=== PATIENT | female | born 1985 | race Caucasian/White ===

== ENCOUNTER 2019-07-19 08:56 | Inpatient (IN) | payer BC ==
[2019-07-19] MEDS ORDERED: TERBUTALINE 1 MG/ML VIAL SQ PRN (10:54)
[2019-07-19] MEDS ORDERED: CITRIC ACID-SODIUM CITRATE 15 ML CUP PO ONE (10:59)
[2019-07-19 11:01] LABS: Appearance,Urine Turbid (Clear); Bacteria,Urine Many /hpf; Bilirubin,Urine Negative (Negative); Blood,Urine Large (Negative); Color,Urine Light Red; Glucose,Urine (UA) Negative (Negative); Ketones,Urine Negative (Negative); Leukocyte Esterase,Urine Large (Negative); Mucus,Urine Few /hpf; Nitrite,Urine Negative (Negative); PH, Urine 6.5 (5.0-8.0); Protein,Urine 2+ (Negative); RBC,Urine >182 /hpf (0-5); Specific Gravity,Urine 1.019 (1.001-1.035); Squamous Epithelial Cell,Urine 27 /hpf (0-4); Urobilinogen,Urine <2.0 mg/dL (<2.0); WBC,Urine >182 /hpf (0-5)
[2019-07-19] MEDS ORDERED: MORPHINE SULFATE (PF) 0.3 MG/0.3 ML SYR ONE (12:00)
[2019-07-19] MEDS ORDERED: NALBUPHINE 10 MG/ML (1 ML AMP) ONE (12:00)
[2019-07-19] MEDS ORDERED: ONDANSETRON 4 MG/2 ML VIAL ONE (12:00)
[2019-07-19] MEDS ORDERED: OXYTOCIN 10 UNIT/ML 1 ML VIAL ONE (12:00)
[2019-07-19] MEDS ORDERED: KETOROLAC 30 MG/ML 1 ML VIAL ONE (12:00)
[2019-07-19 12:14] LABS: Basophils # (A) 0.2 k/uL (0-0.2); Basophils % (A) 1 %; Eosinophils # (A) 0.1 k/uL (0-0.7); Eosinophils % (A) 1 %; HCT 36.4 % (34.0-46.0); HGB 12.7 gm/dL (11.4-16.0); Lymphocytes # (A) 1.4 k/uL (1.0-4.8); Lymphocytes % (A) 8 %; MCH 30.6 pg (25.0-35.0); MCHC 34.8 g/dL (31.0-37.0); MCV 87.8 fL (80.0-100.0); Mean Platelet Volume 11.2; Monocytes # (A) 0.7 k/uL (0-1.0); Monocytes % (A) 4 %; Neutrophils # (A) 15.2 k/uL (1.3-7.7); Neutrophils % (A) 86 %; Platelet Count 316 k/uL (150-450); RBC 4.14 m/uL (3.80-5.40); RDW 13.1 % (11.5-15.5); WBC 17.8 k/uL (3.8-10.6)
[2019-07-19 12:31] LABS: Large Platelets Present
[2019-07-19] MEDS ORDERED: METOCLOPRAMIDE 5 MG/ML 2 ML VIAL IVP PRN (12:57)
[2019-07-19] MEDS ORDERED: ACETAMINOPHEN TAB 325 MG TAB PO PRN (12:57)
[2019-07-19] MEDS ORDERED: NALOXONE 0.4 MG/ML 1 ML VIAL IV PRN (12:57)
[2019-07-19] MEDS ORDERED: diphenhydrAMINE 50 MG CAP PO PRN (12:57)
[2019-07-19] MEDS ORDERED: diphenhydrAMINE 50 MG/ML 1 ML VIAL IVP PRN ×2 (12:57)
[2019-07-19] MEDS ORDERED: diphenhydrAMINE 25 MG CAP PO PRN (12:57)
[2019-07-19] MEDS ORDERED: ZOLPIDEM 5 MG TAB PO PRN (12:57)
[2019-07-19] MEDS ORDERED: SIMETHICONE 80 MG CHEWABLE PO PRN (12:57)
[2019-07-19] MEDS ORDERED: ONDANSETRON 4 MG/2 ML VIAL IVP PRN (12:57)
[2019-07-19] MEDS ORDERED: LANOLIN CREAM 5 GM TUBE TOPICAL PRN (12:57)
[2019-07-19] MEDS ORDERED: HYDROcodone/APAP 7.5-325MG 1 EACH TAB PO PRN (12:57)
[2019-07-19] MEDS ORDERED: LACTATED RINGERS 1,000 ML IV SCH (13:00)
[2019-07-19] MEDS ORDERED: OXYTOCIN 20 UNITS/1000 ML NS 1,000 ML IV SCH (13:00)
--- NOTE | 2019-07-19 13:06 | P.HPOB ---
History of Present Illness H&P Date: 07/19/19 Chief Complaint: 37-6/7 weeks, previous , labor The patient is a 33-year-old 3 para 1011 admitted at 37-6/7 weeks as established by last menstrual period and confirmed by second trimester ultrasound. She is admitted to labor and delivery with complaint of c ontractions beginning last evening and increasing in strength. On labor and delivery, she was found to be quite uncomfortable and made cervical change has not in dilation but significantly so in effacement with regular contractions. All other signs reassuring. Her has been uncomplicated aside from the fact that the fetus has been measured at greater than the 99th percentile since 33 weeks of gestation. She is also known to be Rh- and received RhoGAM at 28 weeks. Group B strep status is negative. She carries a history of a previous section and has requested repeat with intraoperative bilateral tubal occlusion with Filshie clips understanding the permanent nature of the procedure. Obstetrical history: 3 para 1011 with 1 previous term section for arrest of descent and one early miscarriage that did require D&C. Current statistics are listed in history present illness. EDC of 08/03/2019 was established by last menstrual period and confirmed by second trimester ultrasound. Laboratory workup demonstrates a blood type of A- with a negative antibody screen. Rubella status is immune. Remainder of the laboratory workup was within normal limits aside from a positive urine culture which was treated and cured. One hour Glucola was within normal limits and group B strep status is negative. Vice President history: Unremarkable with no history of any infections to include STDs. Review of Systems Review of systems is confined to history of present illness. Past Medical History Past Medical History: No Reported History History of Any Multi-Drug Resistant Organisms: None Reported Additional Past Surgical History / Comment(s): D&C for miscarriage Past Anesthesia/Blood Transfusion Reactions: No Reported Reaction Smoking Status: Never smoker - Past Family History Father Family Medical History: No Reported History Medications and Allergies Home Medications Medication Instructions Recorded Confirmed Type Ferrous Sulfate [Feosol] 325 mg PO DAILY 10/05/15 07/19/19 History Qjx-Bjsh-Gbmol Acid 1 each PO DAILY 10/05/15 07/19/19 History [-U Capsule] Pseudoephedrine HCl [Sudafed] 30 mg PO ONCE 10/22/15 10/22/15 History Allergies Allergy/AdvReac Type Severity Reaction Status Date / Time No Known Allergies Allergy Verified 07/10/19 09:48 Exam Intake and Output 07/18/19 07/19/19 07/19/19 22:59 06:59 14:59 Other: Weight 80.286 kg In general, this is a well-developed, well-nourished white female in some discomfort as she is in early labor. Her heart has a regular rhythm and rate without murmur. Her lungs are clear to auscultation bilaterally in all aaron. Her abdomen is gravid, nondistended, has normal active bowel sounds, is soft, nontender, and without any palpable masses aside from the uterine fundus. Her extremities are without any cyanosis, clubbing, or significant edema and are nontender to palpation bilaterally. Digital cervical examination done by the nursing staff demonstrates her surgery she 1 cm dilated, 100% effaced, the vertex in presentation at -1-2 station. There is a bulging bag of water as well. Results Result Diagrams: 07/19/19 11:08 Abnormal Lab Results - Last 24 Hours (Table) 07/19/19 07/19/19 Range/Units 10:22 11:08 WBC 17.8 H (3.8-10.6) k/uL Neutrophils # 15.2 H (1.3-7.7) k/uL Urine Appearance Turbid H (Clear) Urine Protein 2+ H (Negative) Urine Blood Large H (Negative) Ur Leukocyte Esterase Large H (Negative) Urine RBC >182 H (0-5) /hpf Urine WBC >182 H (0-5) /hpf Ur Squamous Epith Cells 27 H (0-4) /hpf Urine Bacteria Many H (None) /hpf Urine Mucus Few H (None) /hpf Assessment and Plan (1) Family planning Current Visit: Yes Status: Acute Code(s): Z30.09 - ENCOUNTER FOR OTH GENERAL CNSL AND ADVICE ON CONTRACEPTION SNOMED Code(s): 350725873 (2) Previous section Current Visit: Yes Status: Acute Code(s): Z98.891 - HISTORY OF UTERINE SCAR FROM PREVIOUS SURGERY SNOMED Code(s): 120013133 (3) Active labor at term Current Visit: No Status: Acute Code(s): HLJ2816 - SNOMED Code(s): 98589432 Plan: The patient is admitted for active management of labor. As she has requested repeat section and has been found to be in labor, she will be taken to the operating room where she will undergo repeat low transverse section with intraoperative bilateral tubal occlusion using Filshie clips. She has signed consent to that effect in the office and understands the permanent nature of tubal ligation as well as its failure rate and risk for ectopic .
--- NOTE | 2019-07-19 13:13 | P.OP ---
Date of Procedure: 07/19/19 Preoperative Diagnosis: #1. 37-6/7 weeks, previous section, declining vaginal trial of labor #2. Undesired fertility #3. Rh- Postoperative Diagnosis: Same Procedure(s) Performed: #1. Repeat low transverse section #2. Bilateral tubal occlusion with Filshie clips Anesthesia: spinal Surgeon: Abner Arcos Clinical Registered Nurse #1: Sherrie Worley Estimated Blood Loss (ml): 500 IV fluids (ml): 800 Urine output (ml): 100 Pathology: none sent Condition: stable Disposition: floor Operative Findings: See history of present illness and history and physical for circumstances leading to section. The patient was taken to the operating room where she was delivered of a viable 8 lbs. 4 oz. baby boy with Apgars of 9 at 1 minute and 9 at 5 minutes. The placenta was delivered manually, intact, and grossly normal with a grossly normal three-vessel cord. The uterus, tubes, and ovaries were entirely normal to inspection. There was a significant amount of scarring both to the level of the fascia and below the level of the fascia. The bladder itself was scarred fairly high on the lower uterine segment as well as to the anterior abdominal wall. This was carefully taken down prior to delivering the baby. Description of Procedure: The patient was prepped and draped in usual fashion after spinal anesthesia was administered by the anesthesiologist. A Pfannenstiel incision was made and extended into the abdominal cavity with some difficulty noted secondary to scarring at the level of the rectus muscles and fascia. The bladder was noted to be extraordinarily high both on the anterior abdominal wall as well as the uterus. Once the abdomen had been entered above the level of the bladder, the bladder was dissected both from the anterior abdominal wall and from the uterus and reflected distally. A 2 cm incision was made in the transverse plane of the lower uterine segment to enter the uterus at which time clear fluid was noted. The incision was extended in both directions using the bandage scissors. The head was encountered in the pelvis and delivered up and through the incision with some difficulty secondary to the scarring. The nose and mouth were suctioned and the was delivered onto the field where the cord was doubly clamped, cut, and the passed for resuscitative measures with weight and Apgars as noted above. A segment of cord was then doubly clamped, cut, and set aside as cord blood was necessary for evaluation for the necessity of RhoGAM. The placenta was delivered manually and intact as noted above. The uterus was exteriorized and the interior cavity of the uterus swept of any remaining placental or membranous fragments. The margins of the incision were grasped with Elder clamps and the incision closed in a single running locking stitch of 0 chromic catgut from margin to margin. The posterior cul-de-sac was suctioned using a guard and the uterine and ovarian findings were normal as noted above. After reconfirming with the patient her desire for tubal ligation, a Filshie clip was placed across the isthmic portion of each fallopian tube approximately 2-3 cm from the cornu where they were firmly affixed. The uterus was replaced within the abdominal cavity and the incision reexamined. A small point of bleeding at the left central portion of the incision was made hemostatic with a [id number] stitch of 0 chromic catgut. Any other small points of bleeding were made hemostatic with the Bovie. Once hemostasis had been established, the parietal peritoneum was loosely reapproximated after sweeping the gutters of any remaining blood, fluid, or clot. The layer of muscles was examined and found to be hemostatic. The fascia was closed with a single running stitch of 0 Vicryl proceeding from margin to margin. The subcutaneous tissues were irrigated, made hemostatic with the Bovie, and reapproximated with a running stitch of 30 plain catgut. The skin was reapproximated with a running subcuticular stitch of 4-0 Vicryl followed by half-inch Steri-Strips placed with Mastisol. Estimated blood loss for the case was roughly 500 mL. There were no complications. All sponge, instrument, and needle counts were correct. The patient tolerated the procedure well and proceeded to the recovery room in stable condition. Both mother and infant are resting comfortably in recovery.
[2019-07-19 13:39] VITALS: BMI 32.3
[2019-07-19] MEDS ORDERED: Rhogam IMMUNE GLOBULIN 1,500 UNIT/1 ML IM ONE (17:56)
[2019-07-19] MEDS: KETOROLAC 30 MG/ML 1 ML VIAL IVP PRN (20:13)
[2019-07-19] MEDS: SENNOSIDES-DOCUSATE SODIUM 1 EACH TAB PO SCH (20:13)
[2019-07-20] MEDS: KETOROLAC 30 MG/ML 1 ML VIAL IVP PRN ×2 (02:20→10:57)
[2019-07-20 07:11] LABS: Basophils # (A) 0.1 k/uL (0-0.2); Basophils % (A) 0 %; Eosinophils # (A) 0.1 k/uL (0-0.7); Eosinophils % (A) 1 %; HGB 10.4 gm/dL (11.4-16.0); Lymphocytes # (A) 2.6 k/uL (1.0-4.8); Lymphocytes % (A) 17 %; MCH 29.3 pg (25.0-35.0); MCHC 33.5 g/dL (31.0-37.0); MCV 87.5 fL (80.0-100.0); Mean Platelet Volume 11.2; Monocytes # (A) 0.6 k/uL (0-1.0); Monocytes % (A) 4 %; Neutrophils # (A) 11.5 k/uL (1.3-7.7); Neutrophils % (A) 76 %; Platelet Count 226 k/uL (150-450); RBC 3.54 m/uL (3.80-5.40); RDW 13.3 % (11.5-15.5); WBC 15.1 k/uL (3.8-10.6)
--- NOTE | 2019-07-20 09:19 | P.PN ---
Progress Note - Text 07/20 634am 33-year-old female status post with a spinal Duramorph for postop pain control. Patient was seen this morning and evaluated for pain control. She has a VAS of 2 with no complaints of nausea vomiting or itching. Plan follow-up with oblique physician for pain control
--- NOTE | 2019-07-20 10:37 | P.PNOBGPC ---
Subjective - Subjective Patient reports: Reports appetite normal, Reports voiding normally, Reports pain well controlled, Reports ambulating normally [place]: doing well Objective - Vital Signs Latest vital signs: Vital Signs Temp Pulse Resp BP Pulse Ox 07/20/19 08:00 97.5 F L 75 16 105/53 07/20/19 04:00 97.8 F 73 16 90/48 97 07/20/19 00:00 98.2 F 74 16 100/60 96 07/19/19 20:00 98.5 F 77 18 97/62 97 07/19/19 16:00 16 07/19/19 15:00 98.2 F 72 16 105/53 98 07/19/19 14:25 72 16 96/52 98 07/19/19 13:55 82 16 89/40 98 07/19/19 13:40 97.5 F L 69 16 109/51 98 07/19/19 13:25 81 16 119/58 98 07/19/19 13:10 83 16 113/64 98 07/19/19 12:55 97.5 F L 85 16 116/65 98 07/19/19 10:54 97.7 F 76 16 131/61 98 Intake and Output 07/19/19 07/20/19 07/20/19 22:59 06:59 14:59 Intake Total 600 Output Total 600 100 600 Balance -600 500 -600 Intake: Oral 600 Output: Urine 600 100 600 Uretheral (Varela) 100 600 - Exam Extremities: Present: normal Abdomen: Present: normal appearance, soft. Absent: distention, tenderness Incision: Present: normal, dry, intact Uterus: Present: normal, firm (The uterine fundus is tonic and nontender below the umbilicus.) - Labs Labs: Abnormal Lab Results - Last 24 Hours (Table) 07/19/19 07/19/19 07/20/19 Range/Units 10:22 11:08 06:59 WBC 17.8 H 15.1 H (3.8-10.6) k/uL RBC 3.54 L (3.80-5.40) m/uL Hgb 10.4 L (11.4-16.0) gm/dL Hct 31.0 L (34.0-46.0) % Neutrophils # 15.2 H 11.5 H (1.3-7.7) k/uL Urine Appearance Turbid H (Clear) Urine Protein 2+ H (Negative) Urine Blood Large H (Negative) Ur Leukocyte Esterase Large H (Negative) Urine RBC >182 H (0-5) /hpf Urine WBC >182 H (0-5) /hpf Ur Squamous Epith Cells 27 H (0-4) /hpf Urine Bacteria Many H (None) /hpf Urine Mucus Few H (None) /hpf Assessment and Plan (1) Family planning Current Visit: Yes Status: Acute Code(s): Z30.09 - ENCOUNTER FOR OT GENERAL CNSL AND ADVICE ON CONTRACEPTION SNOMED Code(s): 638558716 (2) Previous section Current Visit: Yes Status: Acute Code(s): Z98.891 - HISTORY OF UTERINE SCAR FROM PREVIOUS SURGERY SNOMED Code(s): 070703682 (3) Active labor at term Current Visit: Yes Status: Acute Code(s): EKG6468 - SNOMED Code(s): 36041096 (4) S/P section Current Visit: Yes Status: Acute Code(s): Z98.891 - HISTORY OF UTERINE SCAR FROM PREVIOUS SURGERY SNOMED Code(s): 311055850 Plan: Continue routine postoperative care. I have encouraged the patient and put in the hallways routinely. I would anticipate discharge home tomorrow pending no complications.
[2019-07-20] MEDS: IBUPROFEN 600 MG TAB PO PRN ×3 (11:06→23:37)
[2019-07-20] MEDS: SENNOSIDES-DOCUSATE SODIUM 1 EACH TAB PO SCH ×2 (11:07→19:37)
[2019-07-20] MEDS: HYDROcodone/APAP 5-325MG 1 EACH TAB PO PRN ×2 (13:30→19:38)
[2019-07-21] MEDS: HYDROcodone/APAP 5-325MG 1 EACH TAB PO PRN (03:02)
--- NOTE | 2019-07-21 10:28 | P.DS ---
Providers Date of admission: 07/19/19 10:46 Expected date of discharge: 07/21/19 Attending physician: Abner Arcos Primary care physician: Stated None - Discharge Diagnosis(es) (1) Active labor at term Current Visit: Yes Status: Acute (2) Advanced maternal age (AMA) in Current Visit: Yes Status: Acute (3) Family planning Current Visit: Yes Status: Acute (4) Previous section Current Visit: Yes Status: Acute (5) S/P section Current Visit: Yes Status: Acute Hospital Course: This is a pleasant 33-year-old admitted at 37-6/7 weeks with complaints of contractions increasing in strength. Patient was noted to be quite uncomfortable and cervical change had been made therefore the decision was made to proceed with repeat with tubal ligation per patient request. C- section was performed without difficulty for further details on the please see the operative report. She delivered a viable male weight of 8 lbs. 4 oz. with Apgars of 9-9 at one and 5 minutes respectively. Patient's postoperative course has been essentially uneventful. On this postop day #2 she is ambulating and voiding without difficulty. She is tolerating a regular diet without nausea or vomiting. She states her pain is controlled with norco 7.5/325. She is breast-feeding without difficulty. She does wish discharge home today. Patient Condition at Discharge: Good Plan - Discharge Summary Discharge Rx Participant: Yes New Discharge Prescriptions: No Action Xsm-Fcrd-Ybwix Acid [-U Capsule] 1 each PO DAILY Ferrous Sulfate [Feosol] 325 mg PO DAILY Pseudoephedrine HCl [Sudafed] 30 mg PO ONCE Discharge Medication List Ferrous Sulfate [Feosol] 325 mg PO DAILY 10/05/15 [History] Utr-Mzkj-Dabkp Acid [-U Capsule] 1 each PO DAILY 10/05/15 [History] Pseudoephedrine HCl [Sudafed] 30 mg PO ONCE 10/22/15 [History] Follow up Appointment(s)/Referral(s): Carolin Escoto MD [STAFF PHYSICIAN] - 2 Weeks Patient Instructions/Handouts: (DC), (GEN) Activity/Diet/Wound Care/Special Instructions: No tub baths or intercourse until 6 weeks , kpph-aso-sanitph senna/S for constipation as needed. Discharge Disposition: HOME SELF-CARE
[2019-07-21 11:18] VITALS: BP 116/70; PULSE 86; RESP 18; TEMP 99.4
== END 2019-07-21 12:55 | disposition home or self-care (01) | DRG 785 ==
LOC: FBPOP 08:56 → 4FBP 10:46
PROVIDERS: ADMIT Obstetrics & Gynecology; ATTEND Obstetrics & Gynecology
PROC: 10D00Z1 Extraction of Products of Conception, Low, Open Approach (ICD-10-PCS; 2019-07-19)
PROC: 0UL70CZ Occlusion of Bilateral Fallopian Tubes with Extraluminal Device, Open Approach (ICD-10-PCS; principal; 2019-07-19 12:00)
DX: O34.211 Maternal care for low transverse scar from previous cesarean delivery (principal); Z3A.37 37 weeks gestation of pregnancy; Z37.0 Single live birth; Z79.899 Other long term (current) drug therapy; Z30.2 Encounter for sterilization
CPT/HCPCS: 59025; 81001; 85025; 85461; 86850; 86900; 86901; 99213

== ENCOUNTER → 2022-07-06 | Outpatient (CLI) | payer BC ==
--- NOTE | 2022-07-06 15:57 | XR ---
EXAM TYPE: LUMBAR SPINE X RAY SERIES COMPARISON: NONE HISTORY: Pain TECHNIQUE: 4 views are submitted. FINDINGS: Alignment is anatomic. The pedicles are intact. The transverse processes are intact. There is no s pondylolysis or spondylolisthesis. Postsurgical clips in the pelvis. Facet arthropathy L5-S1. IMPRESSION: 1. Facet arthropathy L5-S1. Consider follow-up MRI..
== END | disposition home or self-care (01) ==
LOC: RADXRMAIN 12:43
PROVIDERS: ATTEND Family Medicine
DX: M47.817 Spondylosis without myelopathy or radiculopathy, lumbosacral region (principal)
CPT/HCPCS: 72110

== ENCOUNTER → 2022-08-13 | Outpatient (CLI) | payer BC ==
--- NOTE | 2022-08-15 07:30 | MR ---
EXAMINATION TYPE: MR lumbar spine wo con DATE OF EXAM: 08/13/2022 COMPARISON: Lumbar spinal x-ray July 06, 2022 HISTORY: Chronic low back pain, abnormal x-rays in pacs. Lumbar region inflammatory spondylopathy. TECHNIQUE: Multiplanar, multisequence imaging of the lumbar spine is performed without IV contrast. FINDINGS: Sagittal images of the lumbar spine show vertebral body heights and alignment to appear sat isfactory. The intervertebral discs demonstrate normal heights and hydration. The conus medullaris i s within normal limits ending superior L2 level. The bone marrow signal intensity is within normal l imits. Axial images show mild facet arthropathy L4-L5 level. No significant disc herniation in the lumbar sp ine. Spinal canal is preserved. Bilateral neural foramina are patent at all lumbar levels. Paraspinal muscle bulk is maintained. IMPRESSION: Minimal degenerative change lower lumbar spine.
== END | disposition home or self-care (01) ==
LOC: RADMRIMAIN 11:50
PROVIDERS: ATTEND Family Medicine
DX: M51.36 Other intervertebral disc degeneration, lumbar region (principal); M46.96 Unspecified inflammatory spondylopathy, lumbar region
CPT/HCPCS: 72148

== ENCOUNTER → 2025-05-17 | Outpatient (CLI) | payer BC ==
--- NOTE | 2025-05-17 11:44 | MM ---
Reason for Exam: Screening (asymptomatic). Baseline mammogram. Patient History: Menarche at age 10. First Full-Term at age 29. Late child-bearing (after 30). Patient has history of breast feeding. Patient used Hormonal Contraceptives for 12 years. Last menstrual period: 05/09/2025 Risk Values: Rosio 5 year model risk: 0.8%. NCI Lifetime model risk: 13.5%. Prior Study Comparison: Patient's first Mammogram. Tissue Density: The breasts are heterogeneously dense, which may obscure small masses. Findings: Analyzed By CAD. Right breast: Lateral aspect masslike glandular tissue measuring 6.0 cm possibly representing a hamartoma. There is no suspicious group of microcalcifications. Left breast: There is no suspicious group of microcalcifications or suspicious mass.. Right breast: Lateral aspect masslike glandular tissue measuring 60 x 38 mm 8.4 cm centimeters from the nipple possibly representing a hamartoma. There is no suspicious group of microcalcifications. Left breast: There is no suspicious group of microcalcifications or suspicious mass.. Overall Assessment: Incomplete: need additional imaging evaluation, BI-RAD 0 Management: Diagnostic Breast Ultrasound of the right breast. [facility] will attempt to contact patient to return for supplemental views and ultrasound if indicated. Patient should continue monthly self-breast exams. A clinical breast exam by your physician is recommended on an annual basis. This exam should not preclude additional follow-up of suspicious palpable abnormalities. Note on Rosio scores and lifetime risk: 1. A Rosio score greater than 3% is considered moderate risk. If this is the case, consider specialist referral to assess eligibility for a risk reducing agent. 2. If overall lifetime risk for the development of breast cancer is 20% or higher, the patient may qualify for future screening with alternating mammogram and breast MRI. [facility], , 05/17/2025 11:40 AM. Electronically signed and approved by: hCristian Wong DO
== END | disposition home or self-care (01) ==
LOC: RADMAMWWP 10:26
PROVIDERS: ATTEND Family Medicine
DX: Z12.31 Encounter for screening mammogram for malignant neoplasm of breast (principal); R92.333 Mammographic heterogeneous density, bilateral breasts; Z92.0 Personal history of contraception
CPT/HCPCS: 77063; 77067

== ENCOUNTER → 2025-05-22 | Outpatient (CLI) | payer BC ==
--- NOTE | 2025-05-22 13:16 | USB ---
Reason for Exam: Additional evaluation requested from abnormal screening. Patient History: Menarche at age 10. First Full-Term at age 29. Late child-bearing (after 30). Patient has history of breast feeding. Patient used Hormonal Contraceptives for 12 years. Risk Values: Rosio 5 year model risk: 0.8%. NCI Lifetime model risk: 13.5%. Technique: Method: Targeted. Prior Study Comparison: 05/17/2025 Bilateral MG 3D screening mammo w/cad, [place]. Findings: The upper outer quadrant of the right breast, the axilla of the right breast and the retroareolar of the right breast were scanned. Targeted ultrasound upper outer quadrant right breast including scanning of the subareolar region and axilla. Very dense tissue is present. No solid or cystic lesion. No axillary adenopathy. Findings suggest large area of global asymmetry related to very dense tissue. Overall Assessment: Benign, BI-RAD 2 Management: Screening Mammogram of both breasts in 1 year. A clinical breast exam by your physician is recommended on an annual basis and results should be correlated with mammographic findings. This exam should not preclude additional follow-up of suspicious palpable abnormalities. Results were given to the patient verbally at the time of exam. [facility], , 05/22/2025 1:13 PM. Electronically signed and approved by: Sarah Palmer M.D. Radiologist
== END | disposition home or self-care (01) ==
LOC: RADUSWWP 12:50
PROVIDERS: ATTEND Family Medicine
DX: R92.8 Other abnormal and inconclusive findings on diagnostic imaging of breast (principal); Z92.0 Personal history of contraception